=== PATIENT | male | born 1995 | race Caucasian/White ===

== ENCOUNTER 2018-05-14 21:21 | Emergency (ER) | payer OTHER ==
[~2018-05-14] VITALS: Ht 177.8 cm; Wt 88.6 kg
[2018-05-14 21:24] VITALS: BP 145/79; TEMP 98
[2018-05-14 22:16] VITALS: PULSE 105
== END 2018-05-14 22:18 | disposition home or self-care (01) ==
LOC: COL.ER 21:21
DX: S61.011A Laceration without foreign body of right thumb without damage to nail, initial encounter (principal); W26.0XXA Contact with knife, initial encounter; Y92.009 Unspecified place in unspecified non-institutional (private) residence as the place of occurrence of the external cause